=== PATIENT | male | born 1995 | race Caucasian/White ===

== ENCOUNTER 2018-07-15 22:25 | Emergency (ER) | payer BC ==
[~2018-07-15 22:25] MED LIST: ACE3 PO; CEFP500T32 PO; HYDR-385 PO; KET10 PO; MULT-1335 PO; NAPR500T75 PO; NO MEDS; SERT-184 PO; [UNRECOGNIZED DRUG - OTHER]
[2018-07-15 22:30] VITALS: BP 119/75
[2018-07-15] MEDS ORDERED: LEVO25TA57 PO (22:36)
[2018-07-15] MEDS ORDERED: VINPAT (22:36)
--- NOTE | 2018-07-15 22:39 | ER Report ---
History and Physical Time Seen By MD: 22:39 Hx. of Stated Complaint: STRAY CAT GOT IN THE HOUSE. ATTACKED DOG. PT GRABBED THE CAT, CAT BIT HIS FACE, EAR, HAND HPI/ROS CHIEF COMPLAINT: Attacked by HISTORY OF PRESENT ILLNESS: 23-year-old male went to separate his dog from a neighbor cat. The cat attacked his hands and it attacked his face. He has multiple puncture wounds on his left cheek. Swelling of his left eye. His vision is blurry. There is obvious edema to the conjunctiva. Patient has multiple scratches on his forearms. There is significant blood on his hands. He has full range of motion. She stated shots greater than 10 years. REVIEW OF SYSTEMS: Respiratory: No cough, no dyspnea. Cardiovascular: No chest pain, no palpitations. Gastrointestinal: No vomiting, no abdominal pain. Musculoskeletal: No back pain. Allergies: Coded Allergies: No Known Drug Allergies (Unverified , 07/15/18) Home Meds Active Scripts Amoxicillin/Pot Clav 875-125 Mg Tab (AUGMENTIN 875-125 TABLET) 1 Each Tablet, 1 TAB PO Q12H for infection, #14 TAB TAKE ONE TABLET BY MOUTH EVERY 12 HOURS Prov:LAURA GRANADOS DO 07/15/18 Naproxen (NAPROSYN) 500 Mg Tablet, 500 MG PO Q12H PRN for prm, #20 TAB Prov:TONYA DELAROSA PA-C 08/03/17 Reported Medications Levothyroxine Sodium (SYNTHROID) 25 Mcg Tablet, 25 MCG PO QDAY 07/15/18 [Vinpat] No Conflict Check 07/15/18 Multivitamin With Minerals (MULTIPLE VITAMIN) 1 Each Tablet, 1 EACH PO, TAB 08/03/17 Hydrocodone Bit/Acetaminophen (HYDROCODON-ACETAMINOPHEN 5-325) 1 Each Tablet, 1 EACH PO Q4H, TAB 08/03/17 Sertraline Hcl (SERTRALINE HCL) 50 Mg Tablet, 1 TAB PO QDAY, TAB 08/03/17 Reviewed Nurses Notes: Yes Old Medical Records Reviewed: Yes Hx Smoking: No Hx Substance Use Disorder: No Hx Alcohol Use: No Constitutional Vital Sign - Last 24 Hours 07/15/18 22:30 Temp 97.8 Pulse 86 Resp 14 B/P (MAP) 119/75 Pulse Ox 94 O2 Delivery Room Air Physical Exam General Appearance: The patient is alert, has no immediate need for airway protection and no current signs of toxicity. Vital signs stable, afebrile, pulse ox normal HEENT: Pupils equal and round no injection. Gross edema to the left conjunctiva. Foreseen is instilled in the left eye. There is no corneal uptake. There is no Pfannenstiel flushing of contrast There are 4 small puncture wounds to the left cheek. Oropharynx is unremarkable Respiratory: Chest is non tender, lungs are clear to auscultation. Cardiac: regular rate and rhythm Gastrointestinal: Abdomen is soft and non tender, no masses, bowel sounds normal. Musculoskeletal: Neck: Neck is supple and non tender. No lymphadenopathy, no neck wounds Extremities have full range of motion and are non tender. Multiple superficial scrapes/Scratches left forearm some on bilateral hands Skin: No rashes or lesions. DIFFERENTIAL DIAGNOSIS: After history and physical exam differential diagnosis was considered for Scratch, Bites, puncture wounds, left eye injury, left eye puncture wounds. Medical Decision Making ED Course/Re-evaluation ED Course Patient admitted to an examination room. H&P is done. The differential diagnoses was considered. On clinical examination. Patient has numerous Scratches and potential Bites to his left face. His tetanus status is updated. His left eye is evaluated. He is given Augmentin 875 mg. Rabies prophylaxis was considered. This is a neighbor's cat. His been captured by animal control and will be quarantined. I think that the cat is unlikely infected with rabies. We'll will postpone rabies ofloxacin at this time. Patient's discharged with a prescription for Augmentin. He is advised ibuprofen 600 mg 3 times daily. He's advised daily wound care. Decision to Disposition Date: Jul 15, 2018 Decision to Disposition Time: 22:44 Depart Departure Latest Vital Signs Vital Signs Date Time Temp Pulse Resp B/P (MAP) Pulse Ox O2 Delivery O2 Flow Rate FiO2 07/15/18 22:30 97.8 86 14 119/75 94 Room Air Impression: Primary Impression: Bite from cat Additional Impressions: Puncture wound of face Conjunctivitis Puncture wound of hand Condition: Improved Disposition: HOME OR SELF-CARE Referrals: MARGARITA WOO MD (PCP) New Scripts Amoxicillin/Pot Clav 875-125 Mg Tab (AUGMENTIN 875-125 TABLET) 1 Each Tablet 1 TAB PO Q12H for infection, #14 TAB TAKE ONE TABLET BY MOUTH EVERY 12 HOURS Prov: LAURA GRANADOS DO 07/15/18 Patient Instructions: Animal Bite (ED), Puncture Wound (ED) Additional Instructions: Take ibuprofen 200 mg 3 tablets 3 times a day with food for 3-5 days Use Tobrex drops 1 drop 2-3 times per day for 2-3 days Take Augmentin 875 mg twice daily for 7 days Return to the ER for any worsening within 2 days Problem Qualifiers Primary Impression: Bite from cat Encounter type: initial encounter Qualified Codes: W55.01XA - Bitten by cat, initial encounter Additional Impressions: Puncture wound of face Encounter type: initial encounter Qualified Codes: S01.83XA - Puncture wound without foreign body of other part of head, initial encounter Conjunctivitis Conjunctivitis type: acute Acute conjunctivitis type: unspecified Laterality: left Qualified Codes: H10.32 - Unspecified acute conjunctivitis, left eye Puncture wound of hand Encounter type: initial encounter Foreign body presence: without foreign body Laterality: left Qualified Codes: S61.432A - Puncture wound without foreign body of left hand, initial encounter LAURA GRANADOS DO Jul 15, 2018 22:39
[2018-07-15] MEDS ORDERED: PROPARACAINE 0.5% OP 15ML BTL OS ONE (22:40)
[2018-07-15] MEDS ORDERED: FLUORESCEIN SOD 1 MG 1 EA STRP OS ONE (22:40)
[2018-07-15] MEDS ORDERED: AMOX/CLAV 875 MG TAB PO ONE (22:40)
[2018-07-15] MEDS ORDERED: DIPHTH/TETANUS/ACEL. PERTUSSIS IM ONLY ONE (22:40)
[2018-07-15] MEDS ORDERED: TOBRAMYCIN/DEX OP SUSP 2.5 ML OS ONE (22:45)
[2018-07-15] MEDS ORDERED: AMOX-559 PO (22:52)
== END 2018-07-15 23:14 | disposition home or self-care (01) ==
LOC: ER 22:49
DX: S01.83XA Puncture wound without foreign body of other part of head, initial encounter (principal); H10.32 Unspecified acute conjunctivitis, left eye; S61.432A Puncture wound without foreign body of left hand, initial encounter; W55.01XA Bitten by cat, initial encounter
CPT/HCPCS: 90471; 90715; 99283